=== PATIENT | male | born 1995 | race Caucasian/White ===

== ENCOUNTER 2019-05-14 20:20 | Emergency (ER) | payer SELFPAY ==
[~2019-05-14] VITALS: Ht 162.6 cm; Wt 60.3 kg
[2019-05-14 20:27] VITALS: Ht 162.6 cm; Wt 60.3 kg
[2019-05-14 21:46] VITALS: BP 97/60
== END 2019-05-14 21:46 | disposition home or self-care (01) ==
LOC: ED 20:20
DX: S91.135A Puncture wound without foreign body of left lesser toe(s) without damage to nail, initial encounter (principal); W22.8XXA Striking against or struck by other objects, initial encounter; Y93.89 Activity, other specified; Y92.89 Other specified places as the place of occurrence of the external cause; Y99.8 Other external cause status
CPT/HCPCS: 90715

== ENCOUNTER 2019-09-13 22:28 | Emergency (ER) | payer SELFPAY ==
[~2019-09-13] VITALS: Ht 157.5 cm; Wt 58.2 kg
[2019-09-13 22:59] VITALS: Ht 157.5 cm; Wt 58.2 kg
[2019-09-14 00:58] VITALS: BP 107/60
== END 2019-09-14 00:58 | disposition home or self-care (01) ==
LOC: EDSEX 22:28 → ED 22:28
DX: O99.512 Diseases of the respiratory system complicating pregnancy, second trimester (principal); J11.1 Influenza due to unidentified influenza virus with other respiratory manifestations; Z3A.24 24 weeks gestation of pregnancy